=== PATIENT | male | born 1995 | race African-American/Black ===

== ENCOUNTER 2017-12-18 17:31 | Emergency (ER) | payer SELFPAY ==
[2017-12-18] MEDS ORDERED: HYDROcod/ACETAM 5/325 MG TABLET PO STA (19:25)
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
[2017-12-18] MEDS ORDERED: HYDROcod/ACET 5/325 Prepack 4 PO STA (20:49)
--- NOTE | 2017-12-18 21:00 | XRAY Report ---
Procedure Date: 12/18/2017 Accession Number: [id number] / [id number] Procedure: XR - Cervical Spine 2 View CPT Code: FULL RESULT: EXAM: CERVICAL SPINE RADIOGRAPHY EXAM DATE: 12/18/2017 08:27 PM. CLINICAL HISTORY: Neck pain COMPARISONS: None. TECHNIQUE: 3 views. FINDINGS: Alignment: Normal. No spondylolisthesis or scoliosis. Bones: The cervical vertebral bodies and posterior elements are well visualized from the skull base through C7-T1. No fractures or bone lesions. Disks: Normal. Disk heights are maintained. Facets: No degenerative disease. Soft Tissues: Normal. No prevertebral soft tissue swelling. The visualized lung apices are clear. IMPRESSION: Negative cervical spine radiography. [facility]
[2017-12-18 21:04] VITALS: BP 108/57
== END 2017-12-18 21:08 | disposition home or self-care (01) ==
LOC: ED 17:31
DX: S13.9XXA Sprain of joints and ligaments of unspecified parts of neck, initial encounter (principal); M25.551 Pain in right hip; V43.62XA Car passenger injured in collision with other type car in traffic accident, initial encounter; V47.6XXA Car passenger injured in collision with fixed or stationary object in traffic accident, initial encounter; Y92.410 Unspecified street and highway as the place of occurrence of the external cause; F17.200 Nicotine dependence, unspecified, uncomplicated
CPT/HCPCS: 72040; 99283; A9270